=== PATIENT | female | born 1975 | race Caucasian/White ===

== ENCOUNTER 2020-02-13 20:48 | Emergency (ER) | payer OTHER ==
[~2020-02-13] VITALS: Ht 167.6 cm; Wt 87.5 kg
[2020-02-13] MEDS ORDERED: ZYRTEC10 M3 PO (21:05)
[2020-02-13] MEDS ORDERED: OMEPRAZOLE20 MG PO (21:05)
== END 2020-02-14 00:10 | disposition home or self-care (01) ==
LOC: ED 20:48
DX: R51.9 Headache, unspecified (principal)
CPT/HCPCS: 70450; 96374; 96375; 99284-25; J1170; J1200; J1885; J2405; J2765; J7030

== ENCOUNTER 2022-03-06 01:56 | Emergency (ER) | payer OTHER ==
[~2022-03-06] VITALS: Ht 167.6 cm; Wt 87.0 kg
[~2022-03-06 01:56] MED LIST: OMEPRAZOLE20 MG PO; ZYRTEC10 M3 PO
[2022-03-06] MEDS ORDERED: WELLBUTRIN SR100 MG PO (02:13)
[2022-03-06] MEDS ORDERED: PROPRANOLOL HCL10 MG PO (04:02)
--- NOTE | 2022-03-08 06:49 | EKG ---
[facility] [address] [facility] [place], [place] [address] Signed Sinus tachycardia Otherwise normal ECG When compared with ECG of 11-MAR-2016 07:58, No significant change was found Confirmed by JOAN NIETO MD ([id number]) on 03/08/2022 6:48:55 AM Electronically Signed By: JOAN NIETO MD 03/08/22 [id number] PATIENT NAME: ORLANDO JASON Electrocardiogram DATE OF : 71 PHYSICIAN: JOAN NIETO MD REPORT #: [id number] REPORT IS CONFIDENTIAL AND NOT TO BE RELEASED WITHOUT AUTHORIZATION
== END 2022-03-06 04:30 | disposition home or self-care (01) ==
LOC: ED 01:56
DX: R00.2 Palpitations (principal); R00.0 Tachycardia, unspecified; Z20.822 Contact with and (suspected) exposure to COVID-19
CPT/HCPCS: 36415; 71045; 80053; 83735; 83880; 84443; 84484; 85025; 85379; 85610; 87502; 93005; 93010; 96374; 99285-25; C9803; J7121; U0003

== ENCOUNTER 2022-10-26 17:37 | Emergency (ER) | payer OTHER ==
[~2022-10-26] VITALS: Ht 167.6 cm; Wt 85.8 kg
[~2022-10-26 17:37] MED LIST changes: +PROPRANOLOL HCL10 MG PO; +WELLBUTRIN SR100 MG PO
[2022-10-26 19:15] VITALS: BP 122/82
== END 2022-10-26 19:18 | disposition home or self-care (01) ==
LOC: ED 17:37
DX: S61.212A Laceration without foreign body of right middle finger without damage to nail, initial encounter (principal); W27.8XXA Contact with other nonpowered hand tool, initial encounter; Z23 Encounter for immunization; Z79.899 Other long term (current) drug therapy
CPT/HCPCS: 90715

== ENCOUNTER 2023-12-21 10:55 | Emergency (ER) | payer OTHER ==
[~2023-12-21] VITALS: Ht 167.6 cm; Wt 84.0 kg
[2023-12-21] MEDS ORDERED: BUPROPION XL150 MG PO (11:31)
[2023-12-21 13:33] VITALS: BP 112/81
== END 2023-12-21 13:33 | disposition home or self-care (01) ==
LOC: ED 10:55
DX: R22.42 Localized swelling, mass and lump, left lower limb (principal); F32.A Depression, unspecified; Z79.899 Other long term (current) drug therapy
CPT/HCPCS: 93971; 99283-25